=== PATIENT | male | born 1950 | race Caucasian/White ===

== ENCOUNTER 2021-09-24 11:32 | Emergency (ER) | payer OTHER, MEDICARE, MEDICAID ==
[2021-09-24] MEDS ORDERED: Furosemide 40 MG/4 ML VIAL IVPUSH ONE (12:42)
[2021-09-24 13:02] LABS: CARBON DIOXIDE,CO2 31.6 mmol/L (21.0-32.0); POTASSIUM,K 4.8 mmol/L (3.5-5.1)
[2021-09-24 13:59] LABS: CORONAVIRUS COVID-19 NAA NEGATIVE (NEGATIVE); INFLUENZA A NAA NEGATIVE (NEGATIVE); INFLUENZA B NAA NEGATIVE (NEGATIVE)
[2021-09-24 15:13] VITALS: BP 148/56; PULSE 70
== END 2021-09-24 16:23 ==
LOC: MW.ED 11:32 → UNDOADMOB 13:50 → MW.MS 13:50 → OBSVTOIN 14:46 → INTOOBSV 14:46 → MW.ED 16:23
DX: R09.02 Hypoxemia (principal); I50.9 Heart failure, unspecified; Z79.82 Long term (current) use of aspirin; Z79.899 Other long term (current) drug therapy; Z20.822 Contact with and (suspected) exposure to COVID-19
CPT/HCPCS: 0240U; 36415; 71045; 80053; 81003; 83880; 84484; 85025; 93005; 96374; 99285; J1940